=== PATIENT | female | born 1995 | race Hispanic/Latino ===

== ENCOUNTER 2021-10-05 22:01 | Emergency (ER) | payer OTHER ==
[~2021-10-05] VITALS: Ht 165.1 cm; Wt 189.6 kg
[2021-10-05 22:04] VITALS: BP 159/80
[2021-10-05] MEDS ORDERED: BACI30OI6 TP (22:39)
[2021-10-05] MEDS ORDERED: BACITRACIN 1 EACH PACKET TP ONE (22:51)
[2021-10-05] MEDS ORDERED: BACITRACIN 28.4 GM OINT TP ONE (23:00)
== END 2021-10-05 22:49 | disposition home or self-care (01) ==
LOC: EDH 22:01
DX: Z48.00 Encounter for change or removal of nonsurgical wound dressing (principal); T21.22XD Burn of second degree of abdominal wall, subsequent encounter; T31.0 Burns involving less than 10% of body surface; X10.0XXD Contact with hot drinks, subsequent encounter
CPT/HCPCS: 99282

== ENCOUNTER 2022-12-12 02:45 | Emergency (ER) | payer BC, OTHER ==
[~2022-12-12] VITALS: Ht 165.1 cm; Wt 199.4 kg
[~2022-12-12 02:45] MED LIST: BACI30OI6 TP
[2022-12-12] MEDS ORDERED: LABETALOL 20MG VIAL IV ONE (03:00)
[2022-12-12 03:29] VITALS: PULSE 88; RESP 16; O2SAT 98
[2022-12-12 03:53] VITALS: BP 137/84; PULSE 88
== END 2022-12-12 04:00 | disposition home or self-care (01) ==
LOC: EDH 02:45
DX: I10 Essential (primary) hypertension (principal); F41.9 Anxiety disorder, unspecified; F32.A Depression, unspecified
CPT/HCPCS: 99284; 96374; J3490